=== PATIENT | female | born 1945 | race Caucasian/White ===

== ENCOUNTER → 2017-12-01 | Day surgery (SDC) | payer MEDICARE, OTHER ==
[~2017-12-01] MED LIST: AMBIEN10 MG PO; AMITRIPTYLINE100 MG PO; ASPIRIN325 MG PO; BUPIVACAINE HCL 0.5% INJ 30 ML VIAL INJ ONE; CALCIUM PO; CEFAZOLIN SOD 2 GM/D5W 50ML 50 ML IV ONE; CELEBREX200 MG PO; DEXAMETHASONE SOD PHOS INJ 4 MG/ML VIAL ONE; EPHEDRINE SULFATE INJ 50 MG/10 ML SYR ONE; ESIDRIX25 MG PO; FENTANYL CITRATE/PF 100MCG/2 ML INJ ONE; FENTANYL1 EAC2 TOP; FERROUS SULFAT325 MG PO; FLEXERIL10 MG PO; FUROSEMIDE40 MG PO; GABAPENTIN800 MG PO; GLYCOPYRROLATE INJ 1MG/ 5 ML SYR ONE; KETOROLAC TROMETHAMINE 30 MG/ML VIAL ONE; LIDOCAINE HCL 2% LOCAL INJ 5 ML SDV VIAL INJ ONE; LORTAB 10-5001 EACH PO; MELOXICAM7.5 MG PO; METHOCARBAMOL500 MG PO; MIDAZOLAM HCL 2 MG/2 ML VIAL ONE; NEOSTIGMINE 1 MG/ML 10ML VIAL ONE; NORCO 10-325 T1 EACH PO; ONDANSETRON HCL INJ 2 MG/ML VIAL ONE; PLAVIX75 MG PO; POTASSIUM CHLO20 ME1 PO; PRESERVISION T1 EACH PO; PROPOFOL IV EMULSION 10 MG/ML 20 ML VIAL ONE; PROZAC20 MG PO; ROBAXIN500 MG PO; SEVOFLURANE INHAL SOLN 250 ML PEN BTL ONE; VASOPRESSIN INJ 20 UNIT/ML VIAL ONE; VITAMIN B-2100 MG PO; VITAMIN B-650 MG PO; VITAMIN B12 PO; VITAMIN D32000 UNI1 PO; XALATAN2.5 ML; XANAX XR2 MG PO
--- NOTE | 2017-12-28 14:31 | Operative Report ---
DATE OF PROCEDURE: December 01, 2017 ROOM: Outpatient, [facility]. 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 TITLE OF OPERATION: Excision of exostosis with a silver Andrade-type bunionectomy, left foot. ANESTHESIA: General endotracheal. HEMOSTASIS: Left thigh tourniquet at 350 mmHg. PROCEDURE IN DETAIL: The patient was taken to the operating room in a mildly sedated state and placed upon the operating table in supine position. Following induction of general anesthetic, the left lower extremity was elevated 60 degrees to exsanguinate before inflating the pneumatic thigh tourniquet to 350 mmHg to create hemostasis. Left lower extremity was placed upon the operating table prior to performing the following procedure. Procedure #1: Modified Andrade or silver bunionectomy: A linear longitudinal incision made across the dorsal medial aspect of the 1st metatarsophalangeal joint. The incision was deepened via sharp and blunt dissection to the level of the dorsal capsular structure. A linear incision was made and the capsule was reflected back from the joint itself. There was a large osteophyte overlying the 1st metatarsophalangeal joint, which was remodeled utilizing an oscillating saw rotary lucian. The area was irrigated with copious amounts of sterile saline solution. Deep closure was 3-0 Vicryl, 4-0 Vicryl, and 4-0 nylon. The areas of surgery were then blocked with 0.5 Marcaine and Decadron LA. Release of the pneumatic thigh tourniquet showed a normal hyperemic flush to all digits of the left foot. The area was blocked with 0.5 Marcaine and Decadron LA. Human tissue allograft was injected into the area surrounding the wound for facilitation of healing. The patient left the operating room with vital signs stable in apparent satisfactory condition, having tolerated both anesthetic and procedure very well. Job#: [id number] BRUNO
== END | disposition home or self-care (01) ==
LOC: OR 08:55
PROVIDERS: ATTEND Podiatrist Foot Surgery
DX: M20.12 Hallux valgus (acquired), left foot (principal); M25.775 Osteophyte, left foot; M19.90 Unspecified osteoarthritis, unspecified site; G47.33 Obstructive sleep apnea (adult) (pediatric); H91.90 Unspecified hearing loss, unspecified ear; G89.29 Other chronic pain; F32.9 Major depressive disorder, single episode, unspecified; Z79.82 Long term (current) use of aspirin; Z86.73 Personal history of transient ischemic attack (TIA), and cerebral infarction without residual deficits; Z87.891 Personal history of nicotine dependence
CPT/HCPCS: 28292; 76000; C1762; J1100; J1885; J2001; J2250; J2405; J2710

== ENCOUNTER 2020-06-08 06:34 | Emergency (ER) | payer MEDICARE, OTHER ==
[~2020-06-08] VITALS: Ht 154.9 cm; Wt 120.0 kg
[~2020-06-08 06:34] MED LIST changes: -BUPIVACAINE HCL 0.5% INJ 30 ML VIAL INJ ONE; -CEFAZOLIN SOD 2 GM/D5W 50ML 50 ML IV ONE; -DEXAMETHASONE SOD PHOS INJ 4 MG/ML VIAL ONE; -EPHEDRINE SULFATE INJ 50 MG/10 ML SYR ONE; -FENTANYL CITRATE/PF 100MCG/2 ML INJ ONE; -GLYCOPYRROLATE INJ 1MG/ 5 ML SYR ONE; -KETOROLAC TROMETHAMINE 30 MG/ML VIAL ONE; -LIDOCAINE HCL 2% LOCAL INJ 5 ML SDV VIAL INJ ONE; -MIDAZOLAM HCL 2 MG/2 ML VIAL ONE; -NEOSTIGMINE 1 MG/ML 10ML VIAL ONE; -ONDANSETRON HCL INJ 2 MG/ML VIAL ONE; -PROPOFOL IV EMULSION 10 MG/ML 20 ML VIAL ONE; -SEVOFLURANE INHAL SOLN 250 ML PEN BTL ONE; -VASOPRESSIN INJ 20 UNIT/ML VIAL ONE
[2020-06-08] MEDS ORDERED: BACITRACIN ZINC 0.9GM TP ONE (07:31)
[2020-06-08] MEDS ORDERED: CLINDAMYCIN HC150 MG PO (07:35)
[2020-06-08 07:49] VITALS: BP 141/77
--- NOTE | 2020-06-08 07:51 | Emergency Department Note ---
History of Present Illnes History of Present Illness Chief Complaint: Skin Rash or Abscess History of Present Illness This is a 75 year old female who presents with "sore" to left forearm . Historian: Patient Arrival Mode: Car Tooth Cutter Pinion Required: No Onset (how long ago): day(s) (2) Location: Left mid forearm Quality: dull Radiation: Reports non-radiation Severity: mild Onset quality: gradual Duration (how long): day(s) (2) Timing of current episode: constant Progression: worsening Chronicity: new Context: Denies recent illness, Denies recent surgery, Denies recent immobilization, Denies recent travel, Denies trauma/injury Relieving factors: other (barbara) Associated symptoms: Denies diaphoresis, Denies fever/chills, Denies malaise, Denies nausea/vomiting Past Medical/Family History Physician Review I have reviewed the patient's past medical and family history. Any updates have been documented here. Past Medical History Recent Fever: No Clinical Suspicion of Infectio: No New/Unexplained Change in Ment: No Past Medical History: TIA, Anemia Other Medical History: AMD Depression Osteoporosis Brain angioma Past Surgical History: Hysterectomy, Hip Replacement, Knee Replacement, Hernia Repair, Bariatric Surgery, Orthopedic Implants Other Surgery: Bile duct stone removal Gastric bypass surgery Brain tumor removal Bilateral shoulder surgery Bilateral knee replacement Right hip Left ankle Right hand/arm surgery Social History Smoking Cessation: Former smoker Counseling Performed: No Alcohol Use: None Any Illegal Drug Use: No Physically hurt or threatened: No Other Last Tetanus: Unknown Any Pre-Existing Lines (PICC,: No Review of Systems Review of Systems Cardiovascular: Reports no symptoms; Denies chest pain, Denies palpitations, Denies syncope Respiratory: Denies chest congestion, Denies cough, Denies hemoptysis Gastrointestinal: Denies abdominal pain, Denies constipation Genitourinary: Reports no symptoms; Denies dysuria Integumentary: Reports as per HPI Neurological: Reports no symptoms Endocrine: Denies excessive sweating, Denies flushing Hematological/Lymphatic: Denies blood clots, Denies easy bleeding Physical Exam Related Data Allergies: Coded Allergies: No Known Allergies (Unverified , 01/24/13) Triage Vital Signs Vital Signs Date Time Temp Pulse Resp B/P (MAP) Pulse Ox O2 Delivery O2 Flow Rate FiO2 06/08/20 06:51 98.8 63 16 151/72 99 Room Air Physical Exam CONSTITUTIONAL Constitutional: Present well-developed HENT HENT: Present normocephalic, Present atraumatic EYES NECK PULMONARY Pulmonary: Present effort normal, Present breath sounds normal, Present respiratory distress CARDIOVASCULAR Cardiovascular: Present regular rhythm, Present normal rate GASTROINTESTINAL Abdominal: Present soft, Present nontender GENITOURINARY SKIN Skin: Present warm, Present dry, Present other (quarter sized subcutaneous abscess over left mid medial/posterior forearm. Fluctuant, mild tenderness.) MUSCULOSKELETAL Musculoskeletal: Present ROM normal NEUROLOGICAL Neurological: Present alert PSYCHOLOGICAL Psychological: Present mood/affect normal, Present thought content normal Procedures Incision and Drain Type of anesthesia: none Risks and benefits discussed: Yes Verbal consent obtained: Yes Consent given by: patient Procedure verified: Yes Side verified: yes Site verified: yes Type: abscess Size: 2 cm Site: upper extremity (lft mid forearm) Skin preparation: antiseptic wash Anesthesia method: none Patient sedated: No Needle aspiration: Yes Incision type: other (18 guage used to open wound which resulted in purulent drainage) Incision depth: dermal Drainage: bloody Drainage amount: scant Patient tolerance: tolerated well Procedure attestation: I performed the procedure Assessment & Plan Medical Decision Making MDM Abscess left forearm extremely superficial and opened with 18 gauge needle with drainage of purulent material. Gave patient option of more formal I&D who elected treat with PO abx and wound check in 2 days or sooner if worse. Assessment & Plan Final Impression: (1) Subcutaneous abscess Last Vital Signs Date Time Temp Pulse Resp B/P (MAP) Pulse Ox O2 Delivery O2 Flow Rate FiO2 06/08/20 06:51 98.8 63 16 151/72 99 Room Air Home Meds Active Scripts Clindamycin Hcl (CLINDAMYCIN HCL) 150 Mg Capsule, 3 TAB PO TID for infection for 10 Days, #30 Prov:CESARIO HUNT MD 06/08/20 Reported Medications Riboflavin (VITAMIN B-2) 100 Mg Tab, 400 MG PO DAILY 11/27/17 Pyridoxine Hcl (VITAMIN B-6) 50 Mg Tablet, 100 MG PO DAILY 11/27/17 [Vitamin B12] No Conflict Check, 2500 MCG PO DAILY 11/27/17 Cholecalciferol (Vitamin D3) (VITAMIN D3) 2,000 Unit Tablet, 1 TAB PO DAILY 11/27/17 Beta Carotene (PRESERVISION TABLET) 1 Each Tab, 1 TAB PO BID 11/27/17 Aspirin (ASPIRIN) 325 Mg Tablet, 81 MG PO DAILY, #30 TAB 11/27/17 [Calcium] No Conflict Check, 1500 MG PO DAILY 11/27/17 Furosemide (FUROSEMIDE) 40 Mg Tablet, 20 MG PO Daily, #30 TAB 11/27/17 Fentanyl (FENTANYL) 1 Each Patch.td72, 50 MCG TOP 72 HRS 11/27/17 Potassium Chloride (POTASSIUM CHLORIDE) 20 Meq Tab.er.prt, 20 MEQ PO DAILY 10/27/15 Hydrocodone Bit/Acetaminophen (NORCO 10-325 TABLET) 1 Each Tablet, 1 EACH PO DAILY 10/27/15 Latanoprost (XALATAN) Unknown Strength Drops 10/27/15 Ferrous Sulfate (FERROUS SULFATE) 325 Mg Tablet, 2 TAB PO DAILY 06/11/13 Alprazolam (XANAX XR) 2 Mg Tab.er.24h, 2 MG PO daily 01/24/13 Fluoxetine Hcl (PROZAC) 20 Mg Capsule, 20 MG PO daily 01/24/13 Hydrochlorothiazide* (ESIDRIX*) 25 Mg Tab, 25 MG PO daily 01/24/13 Gabapentin (GABAPENTIN) 800 Mg Tablet, 800 MG PO four times daily 01/24/13 Amitriptyline Hcl (AMITRIPTYLINE HCL) 100 Mg Tablet, 100 MG PO HS 01/24/13 CESARIO HUNT MD Jun 08, 2020 07:27
[2020-06-08] MEDS ORDERED: BACITRACIN ZINC 15 GM OINT TOP SCH (09:00)
== END 2020-06-08 07:47 | disposition home or self-care (01) ==
LOC: FSED 07:23
DX: L02.414 Cutaneous abscess of left upper limb (principal); D64.9 Anemia, unspecified; F32.9 Major depressive disorder, single episode, unspecified; Z86.73 Personal history of transient ischemic attack (TIA), and cerebral infarction without residual deficits
CPT/HCPCS: 99283

== ENCOUNTER 2022-01-25 14:09 | Inpatient (IN) | payer MEDICARE, OTHER ==
[~2022-01-25] VITALS: Ht 154.9 cm; Wt 107.0 kg
[~2022-01-25 14:09] MED LIST changes: +CLINDAMYCIN HC150 MG PO
[2022-01-25 14:46] LABS: BASOPHILS % 0.9 % (0.0-1.0); EOSINOPHILS % 3.5 % (0.0-6.0); HEMATOCRIT 31.1 % (34.2-44.1); HEMOGLOBIN 9.9 g/dL (12.0-16.0); LYMPHOCYTES # (AUTO) 0.3 (1.0-3.2); LYMPHOCYTES % 25.2 % (18.0-39.1); MEAN CORPUSCULAR HEMOGLOBIN 32.1 pg (28-32); MEAN CORPUSCULAR HGB CONC 31.8 g/dL (31-35); MONOCYTES # (AUTO) 0.3 (0.2-0.8); MONOCYTES % 25.2 % (4.4-11.3); NEUTROPHILS # (AUTO) 0.5 (2.1-6.9); NEUTROPHILS % 45.2 % (38.7-80.0); PLATELET COUNT 191 x10e3/uL (140-360); RED BLOOD COUNT 3.08 x10e6/uL (3.6-5.1)
[2022-01-25 15:04] LABS: ALBUMIN 3.6 g/dL (3.5-5.0); ALBUMIN/GLOBULIN RATIO 1.2 (0.8-2.0); ANION GAP 11.1 mmol/L (8-16); CALCIUM 9.3 mg/dL (8.4-10.2); CREATININE, SERUM 0.89 mg/dL (0.57-1.11); POTASSIUM 4.1 mmol/L (3.5-5.1)
[2022-01-25 15:11] LABS: CREATINE KINASE MB 0.7 ng/mL (0-5.0)
[2022-01-25 15:22] LABS: CLARITY,URINE CLEAR (CLEAR); COLOR,URINE YELLOW (YELLOW)
[2022-01-25 15:23] LABS: KETONES,URINE NEGATIVE (NEGATIVE); LEUKOCYTE ESTERASE ,URINE NEGATIVE (NEGATIVE); NITRITE,URINE NEGATIVE (NEGATIVE); PROTEIN,URINE DIPSTICK NEGATIVE (NEGATIVE); URINE UROBILINOGEN 0.2 mg/dL (0.2 - 1)
[2022-01-25 15:29] LABS: RBC,URINE 0-5 /HPF (0-5); WBC,URINE (MAN) 0-5 /HPF (0-5)
[2022-01-25] MEDS ORDERED: SODIUM CHLORIDE FLUSH 10 ML SYR INJ PRN (16:00)
[2022-01-25] MEDS ORDERED: NITROGLYCERIN 0.4 MG SUBL SL PRN (16:00)
[2022-01-25 16:20] LABS: BAND NEUTROPHILS % (MANUAL) 4 %; EOSINOPHILS % (MANUAL) 8 % (0-7); LYMPHOCYTES % (MANUAL) 26 % (19-48); MONOCYTES % (MANUAL) 14 % (3.4-9.0); NEUTROPHILS % (MANUAL) 42 % (40-74)
[2022-01-25 16:21] LABS: PLATELET ESTIMATE ADEQUATE; PLATELET MORPHOLOGY COMMENT NORMAL
[2022-01-25 17:09] VITALS: BP 154/64
[2022-01-25 17:18] VITALS: BP 154/64
[2022-01-25] MEDS ORDERED: TRAZODONE HCL50 MG PO (18:52)
[2022-01-25 20:00] VITALS: BP 146/65
[2022-01-25 21:01] LABS: CHOL/HDL RATIO 3.1 (3.0-3.6)
[2022-01-25 21:21] LABS: THYROID STIMULATING HORMONE 1.345 uIU/mL (0.350-4.940)
[2022-01-25 21:24] LABS: FERRITIN 185.28 ng/mL (4.63-204.00)
[2022-01-25] MEDS: ACETAMINOPHEN 325 MG TAB PO PRN (21:51)
[2022-01-25] MEDS: TRAZODONE HCL 50 MG TAB PO SCH (21:51)
[2022-01-25] MEDS: ALPRAZOLAM 1 MG TAB PO PRN (21:51)
[2022-01-25 23:52] VITALS: BP 146/65
[2022-01-26] VITALS (8 sets, daily range): BP systolic 131–165; BP diastolic 54–77
[2022-01-26 05:52] LABS: BASOPHILS % 0.9 % (0.0-1.0); EOSINOPHILS % 3.6 % (0.0-6.0); HEMATOCRIT 31.1 % (34.2-44.1); HEMOGLOBIN 10.1 g/dL (12.0-16.0); LYMPHOCYTES # (AUTO) 0.3 (1.0-3.2); MEAN CORPUSCULAR HEMOGLOBIN 32.4 pg (28-32); MEAN CORPUSCULAR HGB CONC 32.5 g/dL (31-35); MEAN CORPUSCULAR VOLUME 99.7 fL (81-99); MONOCYTES # (AUTO) 0.3 (0.2-0.8); MONOCYTES % 25.5 % (4.4-11.3); NEUTROPHILS # (AUTO) 0.3 (2.1-6.9); NEUTROPHILS % 30.9 % (38.7-80.0); PLATELET COUNT 181 x10e3/uL (140-360); RED BLOOD COUNT 3.12 x10e6/uL (3.6-5.1); RED CELL DISTRIBUTION WIDTH 16.6 % (11.7-14.4)
[2022-01-26 06:36] LABS: ALBUMIN 3.3 g/dL (3.5-5.0); ALBUMIN/GLOBULIN RATIO 1.1 (0.8-2.0); ANION GAP 9.9 mmol/L (8-16); CALCIUM 9.1 mg/dL (8.4-10.2); CREATININE, SERUM 0.75 mg/dL (0.57-1.11); POTASSIUM 3.9 mmol/L (3.5-5.1)
[2022-01-26 07:14] LABS: CREATINE KINASE MB 0.6 ng/mL (0-5.0)
[2022-01-26 07:54] LABS: EOSINOPHILS % (MANUAL) 5 % (0-7); LYMPHOCYTES % (MANUAL) 32 % (19-48); MONOCYTES % (MANUAL) 22 % (3.4-9.0); NEUTROPHILS % (MANUAL) 40 % (40-74)
[2022-01-26 07:55] LABS: ANISOCYTOSIS SLIGHT; HYPOCHROMASIA SLIGHT; PLATELET ESTIMATE ADEQUATE; RBC MORPHOLOGY COMMENT NORMAL
[2022-01-26] MEDS: HYDROCHLOROTHIAZIDE 25 MG TAB PO SCH (09:16)
[2022-01-26] MEDS: POTASSIUM CHLORIDE 20 MEQ TAB CR PO SCH (09:16)
[2022-01-26] MEDS: FUROSEMIDE 20 MG TAB PO SCH (09:17)
[2022-01-26] MEDS: RIBOFLAVIN 100 MG TAB PO SCH (09:17)
[2022-01-26] MEDS: FLUOXETINE HCL 20 MG CAP PO SCH (09:17)
[2022-01-26] MEDS: PYRIDOXINE HCL 50 MG TAB PO SCH (09:17)
[2022-01-26] MEDS: ACETAMINOPHEN 325 MG TAB PO PRN ×2 (09:24→15:35)
[2022-01-26] MEDS ORDERED: PRAMIPEXOLE DIHY1 MG PO (10:01)
[2022-01-26] MEDS: FERROUS SULFATE 325 MG TAB PO SCH (14:00)
[2022-01-26 15:10] LABS: CREATINE KINASE MB 0.6 ng/mL (0-5.0)
[2022-01-26] MEDS ORDERED: XALATAN2.5 ML OD (16:13)
[2022-01-26] MEDS ORDERED: SODIUM FERRIC GLUCONATE COMPLX 125 MG in SODIUM CHLORIDE 0.9% 100 ML 100 ML IV ONE (16:30)
[2022-01-26] MEDS: FAMOTIDINE 20 MG TAB PO SCH (17:16)
[2022-01-26] MEDS: LATANOPROST(OPTH) 2.5 ML BTL OD SCH (21:55)
[2022-01-26] MEDS: ALPRAZOLAM 1 MG TAB PO PRN (22:20)
[2022-01-26] MEDS: TRAZODONE HCL 50 MG TAB PO SCH (22:21)
[2022-01-26] MEDS: PRAMIPEXOLE DIHYDROCHLORIDE 1 MG TAB PO SCH (22:21)
[2022-01-27] VITALS (8 sets, daily range): BP systolic 112–134; BP diastolic 61–72
[2022-01-27] MEDS: ACETAMINOPHEN 325 MG TAB PO PRN (02:12)
[2022-01-27 05:44] LABS: INR 0.99
[2022-01-27] MEDS ORDERED: HYDROCODONE/APAP 10MG-325MG TAB PO SCH (09:00)
[2022-01-27] MEDS: FAMOTIDINE 20 MG TAB PO SCH ×2 (10:24→16:31)
[2022-01-27] MEDS: HYDROCHLOROTHIAZIDE 25 MG TAB PO SCH (10:25)
[2022-01-27] MEDS: FOLIC ACID 1 MG TAB PO SCH (10:25)
[2022-01-27] MEDS: FERROUS SULFATE 325 MG TAB PO SCH (10:25)
[2022-01-27] MEDS: POTASSIUM CHLORIDE 20 MEQ TAB CR PO SCH (10:26)
[2022-01-27] MEDS: PRAMIPEXOLE DIHYDROCHLORIDE 1 MG TAB PO SCH ×3 (10:26→21:18)
[2022-01-27] MEDS: FUROSEMIDE 20 MG TAB PO SCH (10:26)
[2022-01-27] MEDS: FLUOXETINE HCL 20 MG CAP PO SCH (10:27)
[2022-01-27] MEDS: RIBOFLAVIN 100 MG TAB PO SCH (10:27)
[2022-01-27] MEDS: PYRIDOXINE HCL 50 MG TAB PO SCH (10:28)
[2022-01-27 14:10] LABS: BASOPHILS % 0.7 % (0.0-1.0); EOSINOPHILS % 2.6 % (0.0-6.0); HEMOGLOBIN 10.6 g/dL (12.0-16.0); LYMPHOCYTES # (AUTO) 0.4 (1.0-3.2); LYMPHOCYTES % 24.3 % (18.0-39.1); MEAN CORPUSCULAR HEMOGLOBIN 32.3 pg (28-32); MEAN CORPUSCULAR HGB CONC 31.2 g/dL (31-35); MEAN CORPUSCULAR VOLUME 103.7 fL (81-99); MONOCYTES # (AUTO) 0.4 (0.2-0.8); MONOCYTES % 23.7 % (4.4-11.3); NEUTROPHILS # (AUTO) 0.7 (2.1-6.9); PLATELET COUNT 182 x10e3/uL (140-360); RED BLOOD COUNT 3.28 x10e6/uL (3.6-5.1); RED CELL DISTRIBUTION WIDTH 17.1 % (11.7-14.4)
[2022-01-27] MEDS: TRAZODONE HCL 50 MG TAB PO SCH (21:18)
[2022-01-27] MEDS: ALPRAZOLAM 1 MG TAB PO PRN (21:18)
[2022-01-27] MEDS: LATANOPROST(OPTH) 2.5 ML BTL OD SCH (21:20)
[2022-01-27] MEDS: HYDROCODONE/APAP 10MG-325MG TAB PO PRN (23:56)
[2022-01-28] VITALS (9 sets, daily range): BP systolic 108–139; BP diastolic 56–71
[2022-01-28 05:42] LABS: BASOPHILS % 1.3 % (0.0-1.0); EOSINOPHILS # (AUTO) 0.2 (0.0-0.4); EOSINOPHILS % 9.7 % (0.0-6.0); HEMATOCRIT 33.9 % (34.2-44.1); HEMOGLOBIN 10.5 g/dL (12.0-16.0); LYMPHOCYTES # (AUTO) 0.5 (1.0-3.2); LYMPHOCYTES % 30.3 % (18.0-39.1); MEAN CORPUSCULAR HEMOGLOBIN 32.1 pg (28-32); MEAN CORPUSCULAR VOLUME 103.7 fL (81-99); MONOCYTES # (AUTO) 0.3 (0.2-0.8); MONOCYTES % 21.9 % (4.4-11.3); NEUTROPHILS # (AUTO) 0.6 (2.1-6.9); NEUTROPHILS % 36.2 % (38.7-80.0); PLATELET COUNT 182 x10e3/uL (140-360); RED BLOOD COUNT 3.27 x10e6/uL (3.6-5.1); RED CELL DISTRIBUTION WIDTH 16.8 % (11.7-14.4)
[2022-01-28 05:58] LABS: ANION GAP 13.8 mmol/L (8-16); CALCIUM 9.3 mg/dL (8.4-10.2); CREATININE, SERUM 0.98 mg/dL (0.57-1.11); POTASSIUM 3.8 mmol/L (3.5-5.1)
[2022-01-28] MEDS ORDERED: PRAMIPEXOLE DIHYDROCHLORIDE 1 MG TAB PO SCH ×2 (06:30)
[2022-01-28] MEDS: PRAMIPEXOLE DIHYDROCHLORIDE 1 MG TAB PO SCH ×3 (06:43→20:45)
[2022-01-28] MEDS: FAMOTIDINE 20 MG TAB PO SCH ×2 (07:30→16:09)
[2022-01-28 08:49] LABS: EOSINOPHILS % (MANUAL) 10 % (0-7); LYMPHOCYTES % (MANUAL) 31 % (19-48); MONOCYTES % (MANUAL) 17 % (3.4-9.0); NEUTROPHILS % (MANUAL) 42 % (40-74); PLATELET ESTIMATE ADEQUATE; PLATELET MORPHOLOGY COMMENT FEW LARGE; RBC MORPHOLOGY COMMENT NORMAL
[2022-01-28] MEDS: FOLIC ACID 1 MG TAB PO SCH (09:00)
[2022-01-28] MEDS: FERROUS SULFATE 325 MG TAB PO SCH (09:00)
[2022-01-28] MEDS: POTASSIUM CHLORIDE 20 MEQ TAB CR PO SCH (09:00)
[2022-01-28] MEDS: HYDROCHLOROTHIAZIDE 25 MG TAB PO SCH (09:00)
[2022-01-28] MEDS: RIBOFLAVIN 100 MG TAB PO SCH (09:00)
[2022-01-28] MEDS: PYRIDOXINE HCL 50 MG TAB PO SCH (09:00)
[2022-01-28] MEDS: FUROSEMIDE 20 MG TAB PO SCH (09:00)
[2022-01-28] MEDS: FLUOXETINE HCL 20 MG CAP PO SCH (09:00)
[2022-01-28] MEDS ORDERED: MIDAZOLAM HCL 2 MG/2 ML VIAL ONE (13:20)
[2022-01-28] MEDS ORDERED: FENTANYL CITRATE/PF 100MCG/2 ML INJ ONE (13:20)
[2022-01-28] MEDS ORDERED: SODIUM CHLORIDE 0.9% 250ML 250 ML ONE (13:48)
[2022-01-28] MEDS ORDERED: LIDOCAINE HCL 1% LOCAL INJ 20 ML VIAL ONE (13:50)
[2022-01-28] MEDS ORDERED: SODIUM FERRIC GLUCONATE COMPLX 125 MG in SODIUM CHLORIDE 0.9% 100 ML 100 ML IV ONE ×2 (14:00→21:00)
[2022-01-28] MEDS ORDERED: SODIUM FERRIC GLUCONATE COMPLX 125 MG in SODIUM CHLORIDE 0.9% 100 ML 100 ML IV SCH (14:00)
[2022-01-28] MEDS: TRAZODONE HCL 50 MG TAB PO SCH (20:45)
[2022-01-28] MEDS: LATANOPROST(OPTH) 2.5 ML BTL OD SCH (20:45)
[2022-01-28] MEDS: ALPRAZOLAM 1 MG TAB PO PRN (20:45)
[2022-01-28] MEDS: HYDROCODONE/APAP 10MG-325MG TAB PO PRN (20:48)
[2022-01-29] VITALS (8 sets, daily range): BP systolic 90–131; BP diastolic 47–66
[2022-01-29] MEDS: FOLIC ACID 1 MG TAB PO SCH (09:08)
[2022-01-29] MEDS: PRAMIPEXOLE DIHYDROCHLORIDE 1 MG TAB PO SCH ×3 (09:08→21:07)
[2022-01-29] MEDS: POTASSIUM CHLORIDE 20 MEQ TAB CR PO SCH (09:08)
[2022-01-29] MEDS: FAMOTIDINE 20 MG TAB PO SCH ×2 (09:08→17:01)
[2022-01-29] MEDS: RIBOFLAVIN 100 MG TAB PO SCH (09:09)
[2022-01-29] MEDS: FUROSEMIDE 20 MG TAB PO SCH (09:13)
[2022-01-29] MEDS: PYRIDOXINE HCL 50 MG TAB PO SCH (09:13)
[2022-01-29] MEDS: FLUOXETINE HCL 20 MG CAP PO SCH (09:13)
[2022-01-29] MEDS: HYDROCHLOROTHIAZIDE 25 MG TAB PO SCH (09:13)
[2022-01-29] MEDS: HYDROCODONE/APAP 10MG-325MG TAB PO PRN (09:14)
[2022-01-29 14:02] LABS: BASOPHILS % 1.4 % (0.0-1.0); EOSINOPHILS # (AUTO) 0.2 (0.0-0.4); EOSINOPHILS % 10.9 % (0.0-6.0); HEMATOCRIT 32.7 % (34.2-44.1); HEMOGLOBIN 10.1 g/dL (12.0-16.0); LYMPHOCYTES # (AUTO) 0.3 (1.0-3.2); MEAN CORPUSCULAR HEMOGLOBIN 31.6 pg (28-32); MEAN CORPUSCULAR HGB CONC 30.9 g/dL (31-35); MEAN CORPUSCULAR VOLUME 102.2 fL (81-99); MONOCYTES # (AUTO) 0.2 (0.2-0.8); MONOCYTES % 17.4 % (4.4-11.3); NEUTROPHILS # (AUTO) 0.7 (2.1-6.9); NEUTROPHILS % 49.3 % (38.7-80.0); PLATELET COUNT 147 x10e3/uL (140-360); RED CELL DISTRIBUTION WIDTH 15.9 % (11.7-14.4)
[2022-01-29 14:20] LABS: ANION GAP 12.5 mmol/L (8-16); CALCIUM 8.4 mg/dL (8.4-10.2); CREATININE, SERUM 0.89 mg/dL (0.57-1.11); POTASSIUM 3.5 mmol/L (3.5-5.1)
[2022-01-29] MEDS: ALPRAZOLAM 1 MG TAB PO PRN (21:07)
[2022-01-29] MEDS: ACETAMINOPHEN 325 MG TAB PO PRN (21:07)
[2022-01-29] MEDS: TRAZODONE HCL 50 MG TAB PO SCH (21:07)
[2022-01-29] MEDS: LATANOPROST(OPTH) 2.5 ML BTL OD SCH (21:08)
[2022-01-30] VITALS (8 sets, daily range): BP systolic 112–132; BP diastolic 50–67
[2022-01-30] MEDS: PRAMIPEXOLE DIHYDROCHLORIDE 1 MG TAB PO SCH ×3 (09:13→20:18)
[2022-01-30] MEDS: FOLIC ACID 1 MG TAB PO SCH (09:14)
[2022-01-30] MEDS: FAMOTIDINE 20 MG TAB PO SCH ×2 (09:14→16:30)
[2022-01-30] MEDS: PYRIDOXINE HCL 50 MG TAB PO SCH (09:15)
[2022-01-30] MEDS: RIBOFLAVIN 100 MG TAB PO SCH (09:15)
[2022-01-30] MEDS: HYDROCHLOROTHIAZIDE 25 MG TAB PO SCH (09:18)
[2022-01-30] MEDS: FLUOXETINE HCL 20 MG CAP PO SCH (09:19)
[2022-01-30] MEDS: POTASSIUM CHLORIDE 20 MEQ TAB CR PO SCH (09:19)
[2022-01-30] MEDS: FUROSEMIDE 20 MG TAB PO SCH (09:19)
[2022-01-30 12:34] LABS: BASOPHILS % 1.4 % (0.0-1.0); EOSINOPHILS # (AUTO) 0.1 (0.0-0.4); EOSINOPHILS % 6.9 % (0.0-6.0); HEMATOCRIT 33.2 % (34.2-44.1); HEMOGLOBIN 10.3 g/dL (12.0-16.0); LYMPHOCYTES # (AUTO) 0.3 (1.0-3.2); LYMPHOCYTES % 17.9 % (18.0-39.1); MEAN CORPUSCULAR HEMOGLOBIN 31.7 pg (28-32); MEAN CORPUSCULAR VOLUME 102.2 fL (81-99); MONOCYTES # (AUTO) 0.4 (0.2-0.8); MONOCYTES % 29.7 % (4.4-11.3); NEUTROPHILS # (AUTO) 0.6 (2.1-6.9); NEUTROPHILS % 42.7 % (38.7-80.0); PLATELET COUNT 167 x10e3/uL (140-360); RED BLOOD COUNT 3.25 x10e6/uL (3.6-5.1); RED CELL DISTRIBUTION WIDTH 15.7 % (11.7-14.4)
[2022-01-30] MEDS: LATANOPROST(OPTH) 2.5 ML BTL OD SCH (20:18)
[2022-01-30] MEDS: TRAZODONE HCL 50 MG TAB PO SCH (20:18)
[2022-01-30] MEDS: ALPRAZOLAM 1 MG TAB PO PRN (20:19)
[2022-01-30] MEDS: HYDROCODONE/APAP 10MG-325MG TAB PO PRN (20:19)
[2022-01-31 00:41] VITALS: BP 120/65
[2022-01-31 04:29] VITALS: BP 129/63
[2022-01-31] MEDS: ACETAMINOPHEN 325 MG TAB PO PRN (05:30)
[2022-01-31] MEDS: FAMOTIDINE 20 MG TAB PO SCH ×2 (07:30→16:30)
[2022-01-31 07:55] VITALS: BP 127/66
[2022-01-31 08:29] LABS: BASOPHILS % 0.8 % (0.0-1.0); EOSINOPHILS # (AUTO) 0.1 (0.0-0.4); EOSINOPHILS % 11.4 % (0.0-6.0); HEMATOCRIT 32.2 % (34.2-44.1); HEMOGLOBIN 10.1 g/dL (12.0-16.0); LYMPHOCYTES # (AUTO) 0.3 (1.0-3.2); MEAN CORPUSCULAR HEMOGLOBIN 31.8 pg (28-32); MEAN CORPUSCULAR HGB CONC 31.4 g/dL (31-35); MEAN CORPUSCULAR VOLUME 101.3 fL (81-99); MONOCYTES # (AUTO) 0.3 (0.2-0.8); MONOCYTES % 25.2 % (4.4-11.3); NEUTROPHILS # (AUTO) 0.5 (2.1-6.9); NEUTROPHILS % 36.6 % (38.7-80.0); PLATELET COUNT 156 x10e3/uL (140-360); RED BLOOD COUNT 3.18 x10e6/uL (3.6-5.1); RED CELL DISTRIBUTION WIDTH 15.5 % (11.7-14.4)
[2022-01-31] MEDS: FUROSEMIDE 20 MG TAB PO SCH (09:00)
[2022-01-31] MEDS: POTASSIUM CHLORIDE 20 MEQ TAB CR PO SCH (09:00)
[2022-01-31] MEDS: HYDROCHLOROTHIAZIDE 25 MG TAB PO SCH (09:00)
[2022-01-31] MEDS: FOLIC ACID 1 MG TAB PO SCH (09:00)
[2022-01-31] MEDS: FLUOXETINE HCL 20 MG CAP PO SCH (09:00)
[2022-01-31] MEDS: PRAMIPEXOLE DIHYDROCHLORIDE 1 MG TAB PO SCH ×2 (09:00→15:00)
[2022-01-31] MEDS: RIBOFLAVIN 100 MG TAB PO SCH (09:00)
[2022-01-31] MEDS: PYRIDOXINE HCL 50 MG TAB PO SCH (09:00)
[2022-01-31 11:08] VITALS: BP 127/66
[2022-01-31 12:13] VITALS: BP 128/70
[2022-01-31 14:05] LABS: EOSINOPHILS % (MANUAL) 6 % (0-7); LYMPHOCYTES % (MANUAL) 31 % (19-48); MONOCYTES % (MANUAL) 22 % (3.4-9.0); NEUTROPHILS % (MANUAL) 41 % (40-74); PLATELET ESTIMATE ADEQUATE; PLATELET MORPHOLOGY COMMENT NORMAL; RBC MORPHOLOGY COMMENT NORMAL
[2022-01-31] MEDS: HYDROCODONE/APAP 10MG-325MG TAB PO PRN (16:16)
[2022-01-31 16:57] VITALS: BP 127/72
[2022-02-01] MEDS ORDERED: SODIUM FERRIC GLUCONATE COMPLX 125 MG in SODIUM CHLORIDE 0.9% 100 ML 100 ML IV SCH (09:00)
== END 2022-01-31 18:40 | DRG 809 ==
LOC: ER 14:12 → ERHOLD 16:12 → MED/SURG 16:48
PROVIDERS: ADMIT Internal Medicine; ATTEND Internal Medicine
PROC: 079T3ZX Drainage of Bone Marrow, Percutaneous Approach, Diagnostic (ICD-10-PCS; principal; 2022-01-28)
PROC: 07DR3ZX Extraction of Iliac Bone Marrow, Percutaneous Approach, Diagnostic (ICD-10-PCS; 2022-01-28)
DX: D70.9 Neutropenia, unspecified (principal); Z68.41 Body mass index [BMI] 40.0-44.9, adult; R07.9 Chest pain, unspecified; Z98.84 Bariatric surgery status; Z86.73 Personal history of transient ischemic attack (TIA), and cerebral infarction without residual deficits; R10.13 Epigastric pain; E66.01 Morbid (severe) obesity due to excess calories; Z20.822 Contact with and (suspected) exposure to COVID-19; I10 Essential (primary) hypertension; M81.0 Age-related osteoporosis without current pathological fracture; H40.9 Unspecified glaucoma; K76.0 Fatty (change of) liver, not elsewhere classified; K76.89 Other specified diseases of liver; N28.1 Cyst of kidney, acquired
CPT/HCPCS: 36415; 38222; 71046; 74470; 76700; 77012; 80048; 80053; 80061; 81001; 82270; 82550; 82553; 82607; 82728; 82746; 83036; 83540; 83880; 84443; 84466; 84484; 85025; 85610; 85730; 93005; 94799; 97139; 99284; J2001; J2250; J2916; J3010; J7050; U0002